=== PATIENT | female | born 1980 | race Caucasian/White ===

== ENCOUNTER 2016-09-15 16:25 | Inpatient (IN) | payer OTHER ==
--- NOTE | ~2016-09-15 | HP ---
Unit #: [id number] #: [id number] Patient: GOVIND CHANCE [id number] [place] [address] [id number] I MR#: [id number] NAME: GOVIND CHANCE ROOM: P173 Age: 35 Sex: F Admission Date: 09/15/2016 : 1980 Attending Physician: uRddy Ritter M.D. Admitting Physician: Ruddy Ritter M.D. Primary Care Physician: Primary Care Physician No HISTORY AND PHYSICAL HISTORY OF PRESENT ILLNESS Govind is a 35 year old admitted to [facility] because of her polysubstance abuse which include pain pills and heroin. PAST MEDICAL HISTORY 1. Long history of poly illicit substance abuse. 2. Asthma. 3. History of polycystic kidney disease. PAST SURGICAL HISTORY Hysterectomy ALLERGIES NSAIDS, Compazine, codeine, aspirin, azithromycin, levofloxacin, gatifloxacin. SOCIAL HISTORY Smokes one pack per day. Denies alcohol. Admits to a long history of illicit substance abuse to include using marijuana daily and abusing pain pills and using heroin. FAMILY HISTORY Medically noncontributory. REVIEW OF SYSTEMS CONSTITUTIONAL: No fever or chills. HEENT: Denies any sore throat, ear pain or runny nose. CARDIOVASCULAR: Denies chest pain, irregular heart rhythm or palpitations. CHEST: Denies shortness of breath or cough. No hemoptysis. GASTROINTESTINAL: Denies nausea, vomiting, diarrhea or chronic constipation. ENDOCRINE: Denies history of increased thirst or urination. No recent significant weight loss or gain. GENITOURINARY: Denies dysuria, frequency, or hematuria. SKIN: Denies any rashes. HEMATOLOGIC: Denies history of increased bleeding or bruising. MUSCULOSKELETAL: Denies any hot, swollen joints. No generalized muscle pain. NEUROLOGIC: Denies problems with vision or speech. No frequent, severe headaches. No numbness, tingling or weakness in any extremities. Denies loss of bladder or bowel control. Unit #: [id number] #: [id number] Patient: GOVIND CHANCE CURRENT MEDICATIONS 1. Detox protocol 2. Celexa 20 mg daily 3. Proventil inhaler p.r.n. PHYSICAL EXAMINATION GENERAL: Alert, well-nourished, in no apparent distress. VITAL SIGNS: Blood pressure 106/64, heart rate 80, respirations 16, temperature 98.6. WEIGHT: 104 pounds. HEIGHT: 5'10". SKIN: Warm and dry without rash or lesion. HEENT: Normocephalic. TMs not viewed. Oral and nasal passages clear. Conjunctivae clear. Pupils equal, round and reactive to light and accommodation. Extraocular movements intact. NECK: Supple without lymphadenopathy or thyromegaly. HEART: Regular rate and rhythm without murmur. LUNGS: Clear. ABDOMEN: Soft, nontender. : Not done. EXTREMITIES: No evidence of cyanosis, clubbing or edema. Moves all extremities without focal deficit. NEUROLOGICAL: Grossly within normal limits. Cranial Nerves: II: Visual oreilly are intact. III, IV AND : Extraocular movements are intact. Pupils are equal, round and reactive to light. V: Facial sensation is grossly normal. VII: Facial movements and expression are normal. VIII: Auditory acuity grossly intact. IX, X: Uvula is midline. Phonation is normal. XI: Patient shrugs shoulders and turns head normally. XII: Tongue protrudes in the midline. Sensory and Motor Function: Sensory and motor sensation is grossly normal. Motor: moves all extremities well. Coordination: Gait is normal. Deep Tendon Reflexes: Intact. IMPRESSION Psychiatric admission RECOMMENDATIONS PSYCHIATRIC: Per psychiatrist. MEDICAL: I see no contraindications to participating in facility's activities. MEDICAL PROGNOSIS Good. MEDICAL CONDITION Stable. Dictated by... Whitney Dominguez P.A.-C. for Faustino Dunn M.D. Unit #: [id number] #: [id number] Patient: GOVIND CHANCE ESTEFANIA/jatin TD: 09/16/2016 22:01 JOB #: [id number] HISTORY AND PHYSICAL Page 1 of 1 X Whitney Dominguez HISTORY AND PHYSICAL
--- NOTE | ~2016-09-15 | PN ---
Unit #: [id number] #: [id number] Patient: GOVIND CHANCE [id number] [facility] [address] [place] [address] [id number] I MR#: [id number] NAME: GOVIND CHANCE ROOM: P173 Age: 35 Sex: F Admission Date: 09/15/2016 : 1980 Attending Physician: Ruddy Ritter M.D. Admitting Physician: Ruddy Ritter M.D. Primary Care Physician: Primary Care Physician No [facility] PROGRESS NOTES DATE 09/17/2016 DISCUSSION HISTORY OF PRESENT ILLNESS This is a 35-year-old white female, who is here in the hospital for issues with substance abuse including IV heroin, related withdrawal, moderate depression, and posttraumatic stress disorder. The patient reports today feeling "bad." She is complains of issues of aches and pains, low energy level, GI disturbance, decreased p.o. intake in terms of tolerance of solid foods and mild tremor and diaphoresis. Sleep was better last night but still disrupted. The patient denied any issues of nausea or vomiting as of yet. Vital signs remain stable with a blood pressure of 98/68 with a pulse of 86 and this was on detox medications scheduled. COWS score of between 2 and 3. MENTAL STATUS EXAMINATION General appearance is a moderately groomed white female, decrease eye contact today, positive for diaphoresis. Speech was clear. Mood was dysphoric with a congruent affect. Thought process and content were grossly organized, linear, no overt evident psychosis. The patient denied any active SI or HI today. The patient's memory was grossly intact. She is alert and oriented x4. Cognitive function seems to be at baseline, alert and oriented x4. Insight and judgment is limited but improving. RECOMMENDATIONS 1. Continue the patient's admission for ongoing detox issues from opiates. The patient beginning to manifest symptoms in a consistent manner. Continue to monitor in a safe controlled environment as well as monitor progress of her mood given history of intermittent SI. The patient tolerating medication restarts with no adverse issues thus far. 2. Will continue to monitor regular within program and work towards disposition as symptoms resolve. Dictated by... Navin Meléndez/alise Unit #: [id number] #: [id number] Patient: GOVIND CHANCE TD: 09/19/2016 05:37 JOB #: [id number] ANOOP PROGRESS NOTES Page 1 of 1 X Ruddy Rittre MD PROGRESS NOTE
--- NOTE | ~2016-09-15 | A ---
[facility] Nutrition Therapy DATE: 09/19/16 Patient: GOVIND CHANCE Physician: LUIS ARMANDO Address: [address] Room/Bed: [address], Zip: [place] [id number] Admit Date: 09/15/16 Date of : [birth year] Height: 5 0 Weight: 101 46.266 NUTRITIONAL ASSESSMENT: REASON: NUTRITION RISK POINT- UNINTENTIONAL WEIGHT LOSS PATIENT ADMITTED FOR HEROIN DETOX PMH: ASTHMA, POLYCYSTIC KIDNEY DZ Anthropometrics: HT: 5'2", WT: 104#, BMI: 19, %IBW: 95 Labs: 09/16/16- NUTRITION LABS WNL Meds: DESYREL, VISTARIL, CELEXA, MVI, DETOX PROTOCOL Assessment: CHART REVIEWED, EVENTS NOTED. PATIENT IS A 35 Y/O FEMALE ADMITTED FOR HEROIN DETOX. PATIENT IS CURRENTLY EMPLOYED, LIVES WITH FAMILY, SMOKES 1 PPD, AND HAS DAILY USE OF HEROIN, MARIJUANA, AND PRESCRIPTION PILLS. PATIENT STATED A POOR APPETITE UPON ADMIT, WITH A 20# WEIGHT LOSS OVER LAST 2 YEARS AND SHE HAS INSOMNIA. NURSING REPORTS GOOD PO INTAKES. THERE ARE NO SKIN OR GI ISSUES NOTED ATT. PATIENT HAS NO C/O N/V. PRIOR TO ADMIT PATIENT WAS NOTED TO BE NON-COMPLIANT WITH MEDICATION AND SHE HAS A HX OF INPATIENT/OUTPATIENT TREATMENT. PATIENT IS ON A VEGETARIAN DIET. THIS RD SUSPECTS WEIGHT AND APPETITE WILL STABILIZE AND POSSIBLY INCREASE FOLLOWING DETOX. Dx: INADEQUATE NUTRIENT INTAKE R/T CURRENT CONDITION, DRUG USE AEB SELF-REPORTED WEIGHT LOSS, DECREASED APPETITE, NUTRITIONAL RISK POINT Intervention: 1. VEGETARIAN DIET, 2. MEDS PER MD, 3. DETOX, 4. PSYCH Monitoring, Evaluation and Goals: 1. ADEQUATE PO INTAKES >50% OF MEALS 2. PREVENT, CORRECT MICRO/MACRO NUTRIENT DEFIENCIES MONITOR: WEIGHTS, LABS, PO/FLUID INTAKES Recommendations: 1. CONTINUE REGULAR VEGETARIAN DIET TOLERATED. 2. ENCOURAGE ADEQUATE PO AND FLUID INTAKES 3. IF PO INTAKES FALL BELOW 50% OF MEALS PLEASE ORDER ENSURE BID TO PROMOTE ADEQUATE KCAL AND PROTEIN INTAKES RD TO F/U PER PROTOCOL AND PRN R/T PATIENT MILDLY COMPROMISED [facility] Nutrition Therapy DATE: 09/19/16 Patient: GOVIND CHANCE Physician: LUIS ARMANDO Address: [address] Room/Bed: [address], Zip: [place] [address] Admit Date: 09/15/16 Date of : [birth year] Height: 5 0 Weight: 101 46.266 Respectfully, MICHELLE MONTES RD, LD [employer] [facility] cc: client file
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
--- NOTE | ~2016-09-15 | PN ---
Unit #: [id number] #: [id number] Patient: GOVIND CHANCE [id number] [facility] [address] [place] [address] [id number] I MR#: [id number] NAME: GOVIND CHANCE ROOM: P173 Age: 35 Sex: F Admission Date: 09/15/2016 : 1980 Attending Physician: Ruddy Ritter M.D. Admitting Physician: Ruddy Ritter M.D. Primary Care Physician: Primary Care Physician No [facility] PROGRESS NOTES DATE 09/19/2016 DISCUSSION This is a 35-year-old white female here with issues of substance dependency and withdrawal. Patient continued to report issues with poor sleep, upset stomach, some diarrhea, energy issues, headache, anxiety. She does report feeling somewhat better today than she did yesterday and we discussed prospect of discharge tomorrow with plan for her to go to [facility] for which she was very appreciative. Overall, patient has been compliant with medications and direction. Still working on socialization and going to groups but progress is noted today. MENTAL STATUS EXAMINATION General appearance is a moderately groomed white female fairly pleasant and cooperative process. Speech was clear and coherent with but was "little better," less depressed, anxious with a congruent affect. Thought process and content are fairly organized and linear. No overt evidence of psychosis. No SI, no HI reported or elicited today. Patient seemed more goal-oriented today. Her memory is grossly intact. Associations were normal. She was alert and oriented times four. Cognitive functioning seems at baseline. Insight and judgement is improving. RECOMMENDATIONS Continue patient's admission for further safety and stabilization for ongoing detox issues. Overall, patient is making good progress and symptoms are resolving. Looks like disposition will happen tomorrow as long as progress continues with plan for patient to go to [facility]. Patient will have a family session today with social work coordinator mediating to facilitate this process. Dictated by... Navin Meléndez/laura TD: 09/19/2016 21:30 JOB #: [id number] Unit #: [id number] #: [id number] Patient: CHANCEGOVIND PROGRESS NOTES Page 1 of 1 X Ruddy Ritter MD PROGRESS NOTE
--- NOTE | ~2016-09-15 | PN ---
Unit #: [id number] #: [id number] Patient: GOVIND CHANCE [id number] [facility] [address] [place] [address] [id number] I MR#: [id number] NAME: GOVIND CHANCE ROOM: P173 Age: 35 Sex: F Admission Date: 09/15/2016 : 1980 Attending Physician: Ruddy Ritter M.D. Admitting Physician: Ruddy Ritter M.D. Primary Care Physician: Primary Care Physician No [facility] PROGRESS NOTES DATE 09/18/2016 SUBJECTIVE UPDATE This is a 35-year-old white female who is in the hospital with ongoing issues with substance abuse and detox. The patient continues to report symptoms worsening. Now she is noting increased GI disturbance with diarrhea, tremors, aches and pains, chills, and hot flashes as well as decreased sleep and decreased energy. The patient was up most in the night with p.r.n. due to the diarrhea. The patient continues to deny any active SI but does report feeling "worse today." MENTAL STATUS EXAMINATION General Appearance: This is a moderately groomed white female seen in her hospital bed. Speech is clear and coherent. Mood was dysphoric with a congruent affect. Thought process and content were grossly organized and linear. No overt evidence of psychosis. The patient denied any active SI or HI. The patient's memory was grossly intact. Associations were normal. Alert and oriented x4. Cognitive functioning was at baseline. Insight and judgment improving. RECOMMENDATIONS 1. We will continue the patient's admission for overall need for detox process. The patient appears mostly likely be reaching climax of her withdrawal symptoms. We will continue to monitor in a controlled and safe fashion and progress as is able. We will increase the patient's trazodone again tonight to help with better sleep needs. The patient is aware of this and is in agreement. 2. We will continue to monitor regularly with working towards disposition planning if possible to residential CD treatment with [facility] if can be cleared. Dictated by... Navin Meléndez TD: 09/19/2016 12:22 JOB #: [id number] Unit #: [id number] #: [id number] Patient: GOVIND CHANCE ANOOP PROGRESS NOTES Page 1 of 1 X Ruddy Ritter MD PROGRESS NOTE
--- NOTE | ~2016-09-15 | DS ---
Unit #: [id number] #: [id number] Patient: GOVIND CHANCE [id number] [place] [address] [id number] I MR#: [id number] NAME: GOVIND CHACNE ROOM: P173 Age: 35 Sex: F Admission Date: 09/15/2016 : 1980 Discharge Date: 09/20/2016 Attending Physician: Ruddy Ritter M.D. Primary Care Physician: No Primary Care Physician DISCHARGE SUMMARY REASON FOR ADMISSION Opiate dependency with withdrawal and depression symptoms and history of PTSD. PERTINENT LABORATORY DATA Patient had routine blood work done yesterday, which included a CMP that was within normal parameters. TSH slightly low at 0.25 but a free T4 normal at 0.86. A CBC that was grossly within normal parameters. Tox screen that was positive for benzos, marijuana and opiates. Urinalysis that showed 1+ urobilinogen, 25-50 WBC, 2+ bacteria but no evidence of leukocytes or nitrates. No other tests performed. HOSPITAL COURSE The patient was admitted for safety and stabilization for ongoing issues with longstanding opiate dependency, drug of choice being heroin with occasional use of marijuana per her report. The patient was also noting issues with significant depression with intermittent SI. Patient also diagnosed with history of PTSD but has not been compliant with outpatient treatment. Patient was put on a detox protocol that progressed appropriately during her admission. She was pretty isolated to her room itself through most of the hospitalization, but towards the end became more social and active with groups and activities. Still complains of various symptoms including headaches, aches and pains, upset stomach, tremor, diarrhea, sleep disturbance, worsening anxiety and depression and diaphoresis. At the time of discharge these symptoms had all be resolved with the exception of headaches. Patient was denying any active SI. Her mood was improved. During this hospitalization, in addition to the detox effort, she was restarted on Celexa 20 mg daily by mouth, as well as trazodone 200 mg at bedtime to help with sleep. The patient was also provided with an asthma inhaler during this hospitalization that she could followup with her primary care doctor for additional refills as needed in the future. Overall patient had shown marked improvement and was felt ready to stepdown to outpatient, with a plan for her to follow up in [facility], being transported there by her family. DISCHARGE DIAGNOSES [place] I Opiate dependency with withdrawal, resolved now. [place] II Major depressive disorder, moderate. [place] III Posttraumatic stress disorder, chronic. Ruskin IV Asthma. [place] V History of renal cysts. Unit #: [id number] #: [id number] Patient: GOVIND CHANCE DISCHARGE FOLLOWUP Includes disposition to [facility] for residential CD treatment and then followup per their recommendation afterwards. DISCHARGE MEDICATIONS 1. Celexa 20 mg daily by mouth for depression and anxiety. 2. Trazodone 200 mg at bedtime for sleep. 3. Albuterol inhaler as needed per asthma protocol CONDITION AT DISCHARGE Improved. PROGNOSIS Fair. DIET AND ACTIVITY Diet is regular and activity is as tolerated with sobriety encouraged. Dictated by... Ruddy Ritter M.D. LETICIA/holly TD: 09/20/2016 10:25 JOB #: [id number] DISCHARGE SUMMARY Page 1 of 1 X Ruddy Ritter MD X DISCHARGE SUMMARY
--- NOTE | ~2016-09-15 | CO ---
Unit #: [id number] #: [id number] Patient: GOVIND CHANCE [id number] [place] [address] [id number] I MR#: [id number] NAME: GOVIND CHANCE ROOM: P173 Age: 35 Sex: F Admission Date: 09/15/2016 : 1980 Attending Physician: Ruddy Ritter M.D. Consultation Date: 09/16/2016 CONSULTATION REPORT SUBJECTIVE Govind is a 35-year-old with history of asthma. She had complained of some wheezing in the past 24 hours. We have been asked to assess and treat. On 09/16/2016, she was seen for her admission H and P. ASSESSMENT Asthma. PLAN Add albuterol inhaler 2 puffs q.4 hours p.r.n. Dictated by... Whitney Dominguez P.A.-C. for Navin Duncan/kori TD: 09/17/2016 18:58 JOB #: [id number] CONSULTATION REPORT Page 1 of 1 X Whitney Dominguez CONSULTATION REPORT
[~2016-09-15 16:25] MED LIST: LORTAB 10-5001 EACH PO; MACROBID100 MG PO
[2016-09-16 11:46] LABS: URINE APPEARANCE CLOUDY; URINE BILIRUBIN NEG (NEG); URINE BLOOD NEG (NEG); URINE COLOR YELLOW; URINE GLUCOSE NEG (NEG); URINE KETONE NEG (NEG); URINE LEUKOCYTE ESTERASE NEG (NEG); URINE NITRATE NEG (NEG); URINE PH 5.5 (5-8); URINE PROTEIN NEG (NEG); URINE SPECIFIC GRAVITY 1.023 (1.003-1.035)
[2016-09-16 12:11] LABS: AMPHETAMINE NEG (NEG); BARBITURATES NEG (NEG); BENZODIAZEPINES POS (NEG); COCAINE NEG (NEG); MARIJUANA POS (NEG); OPIATES POS (NEG); TRICYCLIC ANTIDEPRESSANTS NEG (NEG); U METHADONE NEG (NEG)
[2016-09-16 16:06] LABS: BASOPHIL% 0.4 % (0-2.5); EOSINOPHIL% 0.6 % (0.0-7.0); HEMATOCRIT 38.7 % (35.0-45.0); HEMOGLOBIN 13.2 gm/dL (12.0-16.0); LYMPHOCYTE# 1.5 X10e3 (1.0-3.5); LYMPHOCYTE% 27.9 % (17.0-45.0); MEAN CELL VOLUME 93.4 FL (83-96); MEAN CORPUSCULAR HEMOGLOBIN 31.9 PG (28-34); MEAN CORPUSCULAR HGB CONC 34.2 g/dL (30-36); MEAN PLATELET VOLUME 9.3 FL (6.5-11.5); MONOCYTE# 0.3 X10e3 (0-1.0); MONOCYTE% 5.1 % (3.0-12.0); NEUTROPHIL# 3.7 X10e3 (1.5-7.1); PLATELET COUNT 162 X10e3 (140-420); RED BLOOD COUNT 4.14 X10e (3.90-5.30); RED CELL DISTRIBUTION WIDTH 12.5 % (11.0-15.5); WHITE BLOOD COUNT 5.5 X10e3 (4.0-10.5)
[2016-09-16 16:08] LABS: DIFF IND NO
[2016-09-16 16:26] LABS: THYROID STIMULATING HORMONE 0.25 uIU/ml (0.34-5.60)
[2016-09-16 16:32] LABS: ALBUMIN SERUM 4.4 g/dL (3.5-5.0); BILIRUBIN,TOTAL 1.5 mg/dL (0.2-2.0); BUN/CREATININE RATIO 24.28; CALCIUM SERUM 9.8 mg/dL (8.4-10.2); CREATININE SERUM 0.7 mg/dL (0.6-1.4); GLOM FILT RATE Estimated 113.8 mL/min (>60); POTASSIUM 4.5 mmol/L (3.5-5.1); PROTEIN TOTAL SERUM 7.1 g/dL (6.0-8.3)
[2016-09-16 16:33] LABS: FREE THYROXIN (T4) 0.86 ng/dL (0.58-1.64)
== END 2016-09-20 09:25 | DRG 897 ==
LOC: P1E 16:25
PROVIDERS: Psychiatry & Neurology Psychiatry
PROC: HZ2ZZZZ Detoxification Services for Substance Abuse Treatment (ICD-10-PCS; principal; 2016-09-15)
DX: F11.23 Opioid dependence with withdrawal (principal); F32.1 Major depressive disorder, single episode, moderate; F43.10 Post-traumatic stress disorder, unspecified; J45.909 Unspecified asthma, uncomplicated; N28.1 Cyst of kidney, acquired; Z91.410 Personal history of adult physical and sexual abuse; Z81.8 Family history of other mental and behavioral disorders; Z88.6 Allergy status to analgesic agent
CPT/HCPCS: 80053; 80307; 81003; 84439; 84443; 85025; 86592